=== PATIENT | male | born 1965 | race Caucasian/White ===

== ENCOUNTER 2017-08-31 12:16 | Emergency (ER) | payer SELFPAY ==
[~2017-08-31] VITALS: Ht 177.8 cm; Wt 118.0 kg
[2017-08-31 12:17] VITALS: BP 140/80; PULSE 105; RESP 20; TEMP 98.4; O2SAT 99
[2017-08-31 12:38] VITALS: O2SAT 97; O2SAT 98
[2017-08-31] MEDS ORDERED: SODIUM CHLOR 0.9% 1000 ML INJ 1,000 ML IV SCH (12:43)
[2017-08-31] MEDS ORDERED: methylPREDNISolone SOD SUCC 125 MG/2 ML VIAL IV PUSH ONE (12:45)
[2017-08-31] MEDS ORDERED: SODIUM CHLORIDE 0.9% FLUSH 10 ML FLUSH IV FLUSH PRN (12:45)
[2017-08-31] MEDS ORDERED: diphenhydrAMINE HCL 50 MG/ML VIAL IVP ONE (12:45)
[2017-08-31] MEDS ORDERED: FAMOTIDINE 20 MG/2 ML VIAL IV PUSH ONE (12:45)
--- NOTE | 2017-08-31 12:50 | PD ---
HPI Chief Complaint: Allergic/Adverse Reaction Time Seen by Provider: 12:37 Travel History International Travel<30 days: No Contact w/Intl Traveler<30days: No Traveled to known affect area: No History of Present Illness HPI The patient is a 52-year-old male who presents to the emergency department for urticaria that affects the face, neck, chest, and extremities. The patient does have a history of similar symptoms in the past, 2 years ago, from an unknown source. The patient is currently traveling, from [place], in the local area for the [employer]. The patient denies any known medication allergies or food allergies. The patient did take DayQuil yesterday , but has taken DayQuil in the past without any symptoms. He denies any swelling of the lips or tongue. He denies any difficulty swallowing. He denies any chest pain, shortness of breath, wheezing, nausea, or vomiting. The rash does affect the soles of the feet and the palms of the hand. He denies any assisted fever, chills, or sweats. Symptoms are moderate without any alleviating or exacerbating factors. The patient describes the rash as circular lesions that are red, blanching, and pruritic. [facility] Past Medical History Medical History: Denies Significant Hx Past Surgical History Surgical History: No Previous Surgery Social History Tobacco Use: No Allergies-Medications (Allergen,Severity, Reaction): Coded Allergies: No Known Allergies (Unverified , 08/31/17) Reported Meds & Prescriptions Reported Meds & Active Scripts Active No Active Prescriptions or Reported Medications Review of Systems Except as stated in HPI: all other systems reviewed are Neg General / Constitutional: No: Fever HENT: No: Lightheadedness Cardiovascular: No: Chest Pain or Discomfort Respiratory: No: Shortness of Breath, Wheezing Gastrointestinal: No: Nausea, Vomiting, Abdominal Pain Musculoskeletal: No: Weakness, Edema Skin: Positive Rash, Positive Itching Physical Exam Narrative GENERAL: Awake, alert, pleasant 52-year-old male who appears his stated age and is in no acute respiratory distress. SKIN: Focused skin assessment warm/dry. The patient has uric area on the posterior right neck, anterior chest wall, mid back, arms including the right palm, and the ankles bilateral including the sole of the right foot. The lesions are slightly elevated, circular with a well demarcated edge, and blanching. HEAD: Atraumatic. Normocephalic. EYES: Pupils equal and round. No scleral icterus. No injection or drainage. ENT: No nasal bleeding or discharge. Mucous membranes pink and moist. No obvious edema of the lips, tongue, or uvula. NECK: Trachea midline. No JVD. No stridor noted. CARDIOVASCULAR: Regular rate and rhythm. No murmur appreciated. RESPIRATORY: No accessory muscle use. Clear to auscultation. Breath sounds equal bilaterally. No wheezing noted. GASTROINTESTINAL: Abdomen soft, non-tender, nondistended. No rebound tenderness. MUSCULOSKELETAL: No obvious deformities. No clubbing. No cyanosis. No edema. NEUROLOGICAL: Awake and alert. No obvious cranial nerve deficits. Motor grossly within normal limits. Normal speech. PSYCHIATRIC: Appropriate mood and affect; insight and judgment normal. Data Data Last Documented VS Vital Signs Date Time Temp Pulse Resp B/P (MAP) Pulse Ox O2 Delivery O2 Flow Rate FiO2 08/31/17 12:38 98 Room Air 08/31/17 12:17 98.4 105 20 Orders Orders Ecg Monitoring (08/31/17 12:43) Iv Access Insert/Monitor (08/31/17 12:43) Oximetry (08/31/17 12:43) Diphenhydramine Inj (Benadryl Inj) (08/31/17 12:45) Methylprednisolone So Succ Inj (Solumedr (08/31/17 12:45) Famotidine Inj (Pepcid Inj) (08/31/17 12:45) Sodium Chlor 0.9% 1000 Ml Inj (Ns 1000 M (08/31/17 12:43) Sodium Chloride 0.9% Flush (Ns Flush) (08/31/17 12:45) MDM Medical Decision Making Medical Screen Exam Complete: Yes Emergency Medical Condition: Yes Medical Record Reviewed: Yes Differential Diagnosis Differential diagnosis includes idiopathic urticaria, allergic reaction, anaphylaxis, medication side effect, food allergy. Narrative Course IV was established and the patient was placed on cardiac telemetry monitoring and continuous pulse oximetry monitoring. The patient was administered Solu- Medrol 125 mg intravenously, Benadryl 25 mg intravenously, Pepcid 20 mg intravenously, and IV fluids. The patient was monitored to evaluate if his symptoms improved or worsened in the emergency department. The patient was reevaluated several times, he had no shortness of breath or drainage or edema. Itching improved. Some of the urticaria wheals remaining the same, other seen to improve. Patient be discharged home on prednisone, Benadryl, and Pepcid. He is advised to return if symptoms worsen or progress. Diagnosis Primary Impression: Idiopathic urticaria Patient Instructions: General Instructions Additional Instructions: Medications as directed. Follow-up with her primary physician. Return if symptoms worsen or progress. Med/Other Pt SpecificInfo: Prescription(s) given Scripts Diphenhydramine (Diphenhydramine) 25 Mg Cap 25 MG PO Q6H Y for ALLERGIES, #20 CAP 0 Refills Prov: Federico Sales MD 08/31/17 Famotidine (Pepcid) 20 Mg Tab 20 MG PO BID for 5 Days, #10 TAB 0 Refills Prov: Federico Sales MD 08/31/17 Prednisone (Deltasone) 20 Mg Tab 40 MG PO DAILY for 4 Days, #8 TAB 0 Refills Prov: Federico Sales MD 08/31/17 Disposition: 01 DISCHARGE HOME Condition: Stable Federico Sales MD Aug 31, 2017 12:50
[2017-08-31] MEDS ORDERED: DIPH25CA PO (14:47)
[2017-08-31] MEDS ORDERED: PRED-503 PO (14:47)
[2017-08-31] MEDS ORDERED: FAMO1TAB37 PO (14:47)
== END 2017-08-31 15:00 | disposition home or self-care (01) ==
LOC: NEPD 12:16
DX: L50.1 Idiopathic urticaria (principal)
CPT/HCPCS: 96361; 96374; 96375; 99284; J1200; J2930; J7030